=== PATIENT | male | born 2005 | race Caucasian/White ===

== ENCOUNTER 2024-07-16 13:24 | Emergency (ER) | payer OTHER ==
[~2024-07-16] VITALS: Ht 185.4 cm; Wt 81.6 kg
[2024-07-16] MEDS ORDERED: PREDNISONE20 M1 PO (15:57)
[2024-07-16] MEDS ORDERED: AVPAK AZITHROM250 M1 PO (15:57)
[2024-07-16] MEDS ORDERED: methylPREDNISolone sod succ 125 MG VIAL IM ONE (16:00)
[2024-07-16] MEDS ORDERED: AZITHROMYCIN 250 MG TAB PO ONE (16:00)
== END 2024-07-16 16:18 | disposition home or self-care (01) ==
LOC: ED 13:24
DX: J40 Bronchitis, not specified as acute or chronic (principal); Z20.822 Contact with and (suspected) exposure to COVID-19